=== PATIENT | male | born 1980 ===

== ENCOUNTER 2024-09-23 13:45 | Outpatient (AMB) | payer MEDICAID, SELFPAY ==
--- NOTE | 2024-09-23 13:41 | A.OFFVIS_ITS ---
Intake Visit Reasons: hydrocele Intake Note: New Patient presents for initial visit for hydrocele Urology Medications: none Blood Thinner: none Cigar Bander Hand Required: No Accompanied by: Unknown Allergies No Known Allergies Allergy (Verified 09/23/24 14:39) Medication List - Last Reconciled 09/23/24 by SARMAD Martinez atorvastatin 10 mg PO BEDTIME insulin glargine (Lantus Solostar U-100 Insulin) 40 units subcut BEDTIME lisinopril 10 mg PO DAILY metformin 1,000 mg PO BID trazodone 100 mg PO BEDTIME HPI Comments Details: Ken is a very pleasant 44-year-old Bahamian-speaking male patient of Dr. Plascencia was accompanied by his significant other at today's office visit. He has a past medical history of type 2 diabetes, hypertension, and hyperlipidemia. He presents to the office today as a new patient for hydrocele. In discussion with the patient today he reports increased swelling to the left testicle since October of last year. He discusses following up with his PCP at which time a scrotal ultrasound was ordered. These results reviewed with the patient today. 02/18 moderate left hydrocele, normal testicles with normal Doppler evaluation. Right epididymal head cysts. In assessment of the patient today moderate to large sided left hydrocele is noted otherwise no open areas, drainage, or lesions noted. He otherwise denies any bothersome urinary issues or concerns. He denies urinary urgency, urinary frequency, incontinence, nocturia, hematuria, dysuria, foul smelling urine, changes to urinary stream, flank pain, fever, and or chills. He is happy with his current voiding parameters. We discussed potential causes of hydrocele as well as further interventions and risks and benefits of these interventions. In office urinalysis results reviewed with the patient today. We discussed obtaining A1c for further assessment evaluation. He would like to undergo surgical intervention however will assess A1c prior. He discusses following up with [facility] wound care for his left foot wound. He otherwise offers no other issues or concerns at this time. Review of Systems Const All systems reviewed & are unremarkable except as noted in HPI and below Physical Exam Const General: cooperative, comfortable, no acute distress, well developed, alert and awake Nutritional Appearance: overweight Orientation/consciousness: patient oriented x3 Limitations: crutches HEENT Head: Yes normal to inspection, Yes normocephalic and Yes atraumatic Ears: hearing grossly normal bilaterally Eyes General: appearance normal, both eyes and all related structures Neck Neck: Yes normal visual inspection and Yes trachea midline Chest Chest palpation & inspection: normal inspection of the chest Resp Effort & Inspection: normal respiratory effort and able to speak in complete sentences Cardio Rate: regular rate GI Inspection: Yes normal to inspection General: Yes no CVA tenderness Back/Spine/Pelvis Back: no CVA tenderness Skin General skin exam: no rashes or lesions noted Neuro General: patient oriented x3 Extrem General: Yes normal to inspection Psych Appearance: grossly normal and well kempt Mental Status: mental status grossly normal Speech and movement: Normal speech and movement present and Clear speech present Affect: normal affect Attitude: cooperative Thought process: Normal thought process present Thought content: Normal thought content present Insight: Fair insight present (Psych) Judgement: Fair judgement present (Psych) Results AMB Urinalysis, Automated UA Leukoctes 0 Cornell/uL Last Edit by Drywave on 09/23/24 14:25 UA Nitrite Last Edit by Drywave on 09/23/24 14:25 UA Urobilinogen 0.2 mg/dL Last Edit by Drywave on 09/23/24 14:25 UA Protein 0 mg/dL Last Edit by Drywave on 09/23/24 14:25 UA pH 6.0 Last Edit by Drywave on 09/23/24 14:25 UA Blood 0 West/uL Last Edit by Drywave on 09/23/24 14:25 UA Specific [place] 1.015 Last Edit by Drywave on 09/23/24 14:25 UA Ketone Last Edit by Drywave on 09/23/24 14:25 UA Bilirubin 0 mg/dL Last Edit by Drywave on 09/23/24 14:25 UA Glucose 1000 mg/dL Last Edit by Drywave on 09/23/24 14:25 Results Reviewed Results Reviewed: Laboratory Last Values Urine pH (Auto) 6.0 09/23/24 14:22 Specific [place] (Auto) 1.015 09/23/24 14:22 Urine Protein (Auto) 0 mg/dL 09/23/24 14:22 Glucose (UA)(Auto) 1000 mg/dL 09/23/24 14:22 Urine Blood (Auto) 0 West/uL 09/23/24 14:22 Urine Bilirubin (Auto) 0 mg/dL 09/23/24 14:22 Urine Urobilinogen (Auto) 0.2 mg/dL 09/23/24 14:22 Leukocyte Esterase (Auto) 0 Cornell/uL 09/23/24 14:22 Assessment & Plan Assessment & Plan (1) Hydrocele: Code(s): N43.3 - Hydrocele, unspecified Category: Medical Plan In office urinalysis results reviewed with the patient today; as noted above. Most recent scrotal ultrasound results reviewed with the patient today; as noted above. We discussed further intervention of hydrocele; as well as risks and benefits of these interventions. All questions were answered. Will obtain hemoglobin A1c for further assessment evaluation. He denies any bothersome urinary issues. He reports be happy with current voiding parameters. Follow-up in 1-3 months with A1c to be completed prior; or sooner with any issues, concerns, and or questions. Orders: Orders AMB Urinalysis Automated Today Z13.9 - Encounter for screening, unspecified Hemoglobin A1c Today E11.9 - Type 2 diabetes mellitus without complications Patient Instructions: The patient had an opportunity to ask questions regarding the treatment plan. All questions were answered. Physical exam, labs, and imaging were discussed and reviewed in detail. As well as risks, benefits, and discussion of treatment choices. No major barriers to understanding were identified. The patient expressed understanding and agreement with the above treatment plan. The patient was made aware they should contact our office by phone for worsening of their current condition, the appearance of new symptoms, or with any questions or concerns. Compliance is encouraged with any medications and follow up testing that is ordered. It is a privilege to be allowed the opportunity to participate in? your urological care.? Again, if you have any questions or c oncerns If you have any questions or concerns please do not hesitate to contact me. The office is [phone]. This note is constructed using voice recognition software. While every effort has been made to ensure accuracy plug shaper hand errors may have been included. Yours sincerely, CECILIA Martinez-DIANA Coding Level of Care Code New Pt Level 3 (75413) Diagnoses Hydrocele N43.3
--- OUTSIDE RECORDS SUMMARY | 2024-09-23 18:26 | XMS_ITS | Encounter Summary ---
Author Organization [facility] Address [address] [place] [address] Care Team Providers Care City Sanitarian Name Role Phone Gui Plascencia Primary Care Provider [phone] Encounter Details Date Type Department Care Team (Latest Contact Info) Description 09/02/2024 Travel Social History Tobacco Use Types Packs/Day Years Used Date Smoking Tobacco: Never Smokeless Tobacco: Never Alcohol Use Standard Drinks/Week Comments No 0 (1 standard drink = 0.6 oz pur e alcohol) Social Connections Answer Date Recorded Connectedness 1 01/29/2024 Financial Resource Strain Answer Date R ecorded Financial Resource Strain 1 2023 Stress Answer Date Recorded Stress 1 01/29/2024 Physical Activity Answer Date Recorded Physical Activity 0 04/21/2019 Food Insecurity Answer Date Recorded Food 1 01/29/2024 Transportation Needs Answer Date Record ed Transportation 1 01/29/2024 Housing Stability Answer Date Recorded Housing 1 01/29/2024 Safety and Environment Answer Date Sai rded Safety 1 01/29/2024 Utilities Answer Date Recorded Utilities 1 01/29/2024 Employment Answer Date Recorded Employment 0 04/21/2019 Sex and Gender Information Value Date Recorded Sex Assigned at Male 05/26/2017 1:26 PM PDT Legal Sex Male 11:58 AM PDT Gender Identity Male 05/26/2017 1:26 PM PDT Sexual Orientation Straight 05/26/2017 1: 26 PM PDT COVID-19 Exposure Response Date Recorded In the last 10 days, have yo u been in contact with someone who was confirmed or suspected to have Coronavirus/COVID-19? No / Unsure 09/02/2024 4:36 PM EST documented as of this encounter Plan of Treatment Not on file documented as of this encounter Goals Goal Patient Goal Type Associated Problems Recent Progress Patient-Stated? Author Blood Pressure < 130/80 Blood Pressure Essential hypertension 158/93(2024 4:42 PM EST) No Fahad Page, PharmD HEMOGLOBIN A1C < 7.0 Result Component Diabetes mellitus ([facility]) 13.8(01/29/20 12:08 PM EDT) No Fahad Page, Timothy documented as of this encounter Visit Diagnoses Not on filedocumented in this encounter Additional Health Concerns Assessment Noted Time PHQ-9 Depression Total Score: 3 01/29/20 24 11:34 AM PDT documented as of this encounter Care Teams City Sanitarian Relationship Specialty Start Date End Date Gui Plascencia PA [address] [place] [address] PCP - General Internal Medicine 03/30/18 documented as of this encounter
--- OUTSIDE RECORDS SUMMARY | 2024-09-23 18:26 | XMS_ITS | Clinical Summary ---
Author Organization [address] [facility] Address [address] [place] [address] Phone Care Team Providers Care Gym Instructor Name Role Phone Physician, Pcp Unknown Primary Care Provider Dulce vailable Medications Medication Sig Dispensed Refills Start Date End Date Status ammonium lactate (LAC-HYDRIN) 12 % lotion Apply to soles of feet daily. At night wear socks to bed Active Social History Tobacco Use Types Packs/Day Years Used Date Smoking Tobacco: Never Assessed Sex and Gender Information Value Date Recorded Sex Assigned at Not on file Gender Identity Not on file Sexual Orientation Not on file Job Start Date Occupation Industry Not on file Not on file Not on file Last Filed Vital Signs Vital Sign Reading Time Taken Comments Blood Pressure - - Pulse - - Temperature - - Respiratory Rate - - Oxygen Saturation - - Inhaled Oxygen Concentration - - Weight 129 kg (285 lb) 05/08/2024 10:24 AM EDT Height 177.8 cm (5' 10 ) 05/08/2024 10:24 AM EDT Body Mass Index 40.89 05/08/2024 10:24 AM EDT Plan of Treatment Upcoming Encounters Date Type Department Care Team (Late st Contact Info) Description 10/30/2024 1:45 PM EST Office Visit Orthopedic Surgery - [place] [id number] [phone] Ángel Maynard DPM [address] [address] Health Maintenance Due Date Last Done Comments DTaP,Tdap,and Td Vaccines (1 - Tdap) 1999 Hepatitis B Vaccines (2 of 3 - 19+ 3-dose series) 05/10/2018 04/12/2018 Pneumococcal Vaccine: Pediat rics (0 to 5 Years) and At-Risk Patients (6 to 64 Years) (2 of 2 - PCV) 04/12/2019 04/12/2018 Depression Screening 07/26/2022 HIV Screening 07/26/2022 Social Influencers of Health Screening 07/26/2022 COVID-19 Vaccine (1 - 2023-2 5 season) 2024 Influenza Vaccine (#1) 2024 05/26/2017 Cholesterol Screening (Lipid Panel) 01/28/2029 01/29/2024 Hepatitis C Screening Completed 02/10/2024 HIB Vaccines Aged Out No longer eligi ble based on patient's age to complete this topic HPV Vaccines Aged Out No longer eligi ble based on patient's age to complete this topic Hepatitis A Vaccines Aged Out No long er eligible based on patient's age to complete this topic IPV Vaccines Aged Out No longer eligi ble based on patient's age to complete this topic MMR Vaccines Aged Out No longer eligi ble based on patient's age to complete this topic Meningococcal ACWY Vaccine Aged Out N o longer eligible based on patient's age to complete this topic RSV Immunization Patients Un stephen 20 months Aged Out No longer eligible b ased on patient's age to complete this topic Varicella Vaccines Aged Out No longer eligible based on patient's age to complete this topic Procedures Procedure Name Priority Date/Time Associated Diagnosis Comments HEPATITIS C SCREENING Routine 02/10/2024 LIPID PANEL Routine 01/29/2024 from Last 3 Months or Most Recently Relevant to Health Maintenance Results * Hepatitis C Screening (02/10/2024) Pathologist [facility] Hepatitis C Screening Abstracted Historical Provider MD RANDALL FORD E * Lipid panel (01/29/2024) LDL/HDL Ratio 0 Comment:No Interpretation Triglycerides 0 mg/dL Comment:No Interpretation Cholesterol 0 mg/dL Comment:No Interpretation HDL 0 mg/dL Comment:No Interpretation LDL Cholesterol 0 mg/dL Comment:No Interpretation Blood Venous blood specimen / Unknown Historical Provider LAB BLOOD ORDERAB LES from Last 3 Months or Most Recently Relevant to Health Maintenance Care Teams Gym Instructor Relationship Specialty Start Date End Date Physician, Pcp Unknown PCP - General 07/18/24
--- OUTSIDE RECORDS SUMMARY | 2024-09-23 18:26 | XMS_ITS | Continuity of Care Document ---
Author Organization [facility] Address [address] [place] [address] Phone Care Team Providers Care Conveyor Belt Installer Name Role Phone Allen Fox Unavailable Unavailable Allergies, Adverse Reactions, Alerts Substance Reaction Status Criticality No Known Allergies Active No Inform ation Medications Medication Instructions Dosage Effective Dates (start - stop) Status Comments METFORMIN HCL (unknown strength) Not Available - Active Procedures Procedure Date Office/Outpt E&M Established 15 Mins Apr Duplex Scan-extrem Veins; Comp Duplex Scan-extrem Veins; Uni/ 21 Endovenous Rf, 1st Vein Office/Outpt E&M Established 10 Mins Mar Office/Oupt E&M New Pt 45 Mins Duplex Scan-extrem Veins; Comp Advance Directives Directive Yes / No Effective Date File Name No Information Encounters Encounter Description Practice Location Reason(s) For Visit Diagnoses Date Provider Providers Copied on Encounter Office/Outpt E&M Established 15 Mins [facility], [address], [place], [place], [id number], [place] tel:[phone] [facility] Body mass index (BMI) 40.0-44.9, adultVaricose veins of bi low extrem w oth complicationsVenou s insufficiency (chronic) (peripheral) Sep-2 1 Ruddy Villa. [address], [address], [place], [address], [place]. tel: [phone] Referring Provider: Allen Dillard, [address], [place], [address]. tel:[phone] [facility] [place], [address], [place], [place], [id number], [place] tel:[phone] [place] [facility] [place] Chronic venous htn w oth comp of bilateral low extrm Sep-2 1 Ruddy Villa. [address] [place] [address], [address], [place], [address], [place]. tel: [phone] Referring Provider: Allen Dillard, [address] [place] [address] [address], [place], [place], [facility]. tel:[phone] [facility], [address] [place] [address], [place], [place], [id number], [place] tel:[phone] [place] [facility] [place] Encntr for f/u exam aft trtmt for cond oth than malig neoplmVaricose veins of left lower extremities with pain 1 Ruddy Villa. [address] [place] [address], [address], [place], [address], [place]. tel: [phone] Referring Provider: Allen Dillard, [address] [place] [address] [address], [place], [address]. 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 [address] [place] [address], [address], [place], [address], [place]. tel: [phone] Referring Provider: Allen Dillard, [address] [place] [address] [address], [place], [address]. tel: Office/Outpt E&M Established 10 Mins [facility], [address] [place] [address], [id number], tel:[phone] [facility] [place] Body mass index (BMI) 40.0-44.9, adultVenous insufficiency (chronic) (peripheral) 1 Ruddy Villa. [address] [place] [address], [address], [place], [place], [facility], [place]. tel: [phone] Referring Provider: Allen Dillard, [address] [place] [address] [address], [place], [place], [facility]. tel: Office/Oupt E&M New Pt 45 Mins [facility], [address] [place] [address], [id number], tel:[phone] [facility] Body mass index (BMI) 40.0-44.9, adultVenous insufficiency (chronic) (peripheral)Varico se veins of left lower extremities with pain 1 Ruddy Villa. [address] [place] [address], [address], [place], [place], [facility], [place]. tel: [phone] Referring Provider: Allen Dillard, [address] [place] [address] [address], [place], [place], [facility]. tel: [facility], [address] [place] [address], [id number], tel:[phone] [facility] Chronic venous htn w inflammation of bilateral low extrmVaricose veins of bilateral lower extremities with pain 1 Ruddy Villa. [address] [place] [address], [address], [place], [address], [place]. tel: [phone] Referring Provider: Allen Dillard, [address] [place] [address] [address], [place], [place], [facility]. tel:[phone] Family History Family Member Type Diagnosis Age At Onset No Information Payers Payer name Insurance type Covered democrat ID [id number] [facility] [facility] [id number] Social History Type Description Quantity Date Captured Comments Alcohol Use Details No Caffeine Use Details Unknown Tobacco Use Status Never smoked tobacco 2020 Smoking Status Never smoker Non-Smoking Tobacco Use Details : No Details Available : No Details Available Sex Male Vital Signs Date / Time: Height Weight BMI Pulse Rate Blood Pressure Temperature Respiratory Rate Body Surface Area Head Circumference Head Circ. Percentile Wt./Ramesh. Percentile BMI percentile Pulse Ox Inhaled Ox 1:33 PM 70.00 in 128.367 kg (283.00 lbs) 40.6 0 kg/m eter (2) 98 /min 138/88 mm[Hg] Chief Complaint And Reason For Visit No Information Reason For Referral Reason For Referral No Information Plan Of Treatment Date Type Action Status Goal Diet education completed Goal Diet education completed Goal Diet education completed Referral Ordered: Duplex Scan-extrem Veins; Comp Bilateral leg ordered History Of Present Illness Encounter Date Complaint History Of Prese nt Illness No Information Functional Status Date Functional Assessmen t No Information Instructions Date Instruction Additional Infor lázaro Patient education booklet given Related to V V w/Othr Complictns (Agle-Ewzip-Nkgmiznw); BILAT Giving Encouragement to Exercise Related to Body mass index [BMI]40.0-44.9, adult Diet education Related to Body mass index [BMI]40.0-44.9, adult Pre and post instruc tions reviewed and provided Related to Venous Insufficiency (Chronic / Peripheral) Continue compression stocking us e Related to Venous Insufficiency (Chronic / Peripheral) Giving Encouragement to Exercise Related to Body mass index [BMI]40.0-44.9, adult Diet education Related to Body mass index [BMI]40.0-44.9, adult Giving Encouragement to Exercise Related to Body mass index [BMI]40.0-44.9, adult Diet education Related to Body mass index [BMI]40.0-44.9, adult Patient education booklet given Related to Venous Insufficiency (Chronic / Peripheral) Pre and post instruc tions reviewed and provided Related to Venous Insufficiency (Chronic / Peripheral) Assessments Type Assessment Date assessment Body mass index [BMI]40.0-44.9, adult assessment Varicose veins of bi low extrem w oth complications assessment Venous insufficiency (chronic) ( peripheral) Patient Care Teams Name Effective Dates (start - stop) Status Members No Information
--- OUTSIDE RECORDS SUMMARY | 2024-09-23 18:27 | XMS_ITS | Encounter Summary ---
Author Organization [facility] Address [address] [place] [address] Care Team Providers Care Electronics Tech Name Role Phone Gui Plascencia Primary Care Provider [phone] Reason for Referral * Care Coordination (Urgent) - Pending Review Specialty Diagnoses / Procedures Referred By Francois allen Referred To Contact Diagnoses Blister of left foot, initial encounter Gui Plascencia PA [address] [place] [address] Phone: tel: fax: [facility] [address] [place], [place] Phone: tel: fax: Referral ID Status Reason Start Date Expiration Date Visits Requested Visits Authorized [id number] Pending Review Continuity of Care 09/02/2024 09/02/2025 1 1 Comments Large fluid filled blister left foot Reason for Visit * Reason Comments Same Day Appointment Encounter Details Date Type Department Care Team (Late st Contact Info) Description 09/02/2024 4:40 PM EST Office Visit [address] [phone] Gui Plascencia PA [address] [place] [address] Blister of left foot, initial encounter (Primary Dx); Primary insomnia Social History Tobacco Use Types Packs/Day Years Used Date Smoking Tobacco: Never Smokeless Tobacco: Never Tobacco Cessation:Counseling Given: Not Answered Alcohol Use Standard Drinks/Week Comments No 0 [...] PM EST documented as of this encounter Last Filed Vital Signs Vital Sign Reading Time Taken Comments Blood Pressure 158/93 09/02/2024 4:42 PM EST Pulse 104 09/02/2024 4:42 PM EST Temperature 36.8 ??C (98.2 ??F) 09/02/2024 4:42 PM ES T Respiratory Rate 20 09/02/2024 4:42 PM EST Oxygen Saturation 95% 09/02/2024 4:42 PM EST Inhaled Oxygen Concentration - - Weight 121.1 kg (266 lb 14.4 oz) 09/02/2024 4:42 PM EST Height - - Body Mass Index 38.3 02/10/2024 10:18 AM EDT documented in this encounter Progress Notes * Genny Mcadams - 09/02/2024 4:58 PM EST .HPI Arnoldozeb Pace is a 44 year old, male, here today as Walk-in. Pt presents with a CC of pain and difficulty walking due to a large fluid filled blister at the bottom of his left foot. Patientfeel asleep with his heated foot massager on. Reports pain and tenderness. Denies numbness or tingling decreased range of motion or reduced sensation. ROS Constitutional :Pt denies any fever, chills, HEENT: headache, dizziness,vision changes : Denies nausea, vomiting, no changes in urinary or bowel habits. CARDIO: denies chest pain, sob, cough, Abdominal: denies abdx pain, Skin: No Rash Extremities: left foot pain , no edema or joint pains, PE Vitals reviewed BP (!) 158/93 Pulse (!) 104 Temp 98.2 ??F (36.8 ??C) Resp 20 Wt 266 lb 14.4 oz (121.1 kg) SpO2 95% BMI 38.30 kg/m?? Smoking Status Never BSA 2.45 m?? General: NAD HEENT: PERRL, EOMI CV: RRR, S1S2+ Lungs: CTA b/l. Abd: Soft, NT, ND, BS+ Ext: Left foot, bottom of foot blister, extending entire forefoot, 3 cm thick, blister intact, clear fluid, A&P S90.822A Blister of left foot, initial encounter (primary encounter diagnosis) Plan : REFERRAL TO WOUND THERAPY F51.01 Primary insomnia Plan : TRAZODONE 100 MG TABLET - Take 1 Tablet by mouth nightly at bedtime - wound dressed, wrapped. - advised leaving blister intact and waiting for wound therapy intervention. If any new or worsening symptoms/ If current symptoms does not improve as expected, he may return here or go to ER as needed. RTC: PRN and/ as scheduled with PCP. documented in this encounter Miscellaneous Notes * Patient Instructions - Genny Mcadams - 09/02/2024 5:12 PM EST If you are not able to keep your appointment please call 24-48 hours before your appointment to cancel or reschedule. documented in this encounter Plan of Treatment Scheduled Referrals Name Type Priority Associated Diagnoses Orde r Schedule REFERRAL TO WOUND THERAPY Referral Urgent Blister of left foot, initial encounter Ordered: 09/02/2024 documented as of this encounter Goals Goal Patient Goal Type Associated Problems Recent Progress Patient-Stated? Author Blood Pressure < 130/80 Blood Pressure Essential hypertension 158/93(2024 4:42 PM EST) No Fahad Page, PharmD HEMOGLOBIN A1C < 7.0 Result Component Diabetes mellitus ([facility]) 13.8(01/29/20 12:08 PM EDT) No Fahad Page, PharmD documented as of this encounter Visit Diagnoses Diagnosis Blister of left foot, initial encounter- Primary Primary insomnia Persistent disorder of initiating or maintaining sleep documented in this encounter Additional Health Concerns Assessment Noted Time PHQ-9 Depression Total Score: 3 01/29/20 24 11:34 AM PDT documented as of this encounter Care Teams Electronics Tech Relationship Specialty Start Date End Date Gui Plascencia PA [address] [place] [address] PCP - General Internal Medicine 03/30/18 documented as of this encounter
--- OUTSIDE RECORDS SUMMARY | 2024-09-23 18:27 | XMS_ITS | Clinical Summary ---
Author Organization [facility] Address [address] [place] [address] Care Team Providers Care Mohs Surgeon/General Dermatologist Name Role Phone Gui Plascencia Primary Care Provider [phone] Source Comments PLEASE NOTE, if this patient is a minor, it may be UNLAWFUL to discuss sensitive information that is contained in these records (such as FAMILY PLANNING, MENTAL HEALTH or SUBSTANCE ABUSE) with the minor patient's parent or other person without the patient's specific authorization.[facility] Allergies No known active allergies Medications flash glucose scanning reader (FREESTYLE SRAVAN 2 READER) miscIndications:Ty pe 2 diabetes mellitus with hyperosmolarity without coma, without long-term current use of insulin ([facility]) Use daily as needed to check glucose levels 1 Each 08/25/20 22 Active flash glucose sensor (FREESTYLE SRAVAN 2 SENSOR) kitIndications:Typ e 2 diabetes mellitus with hyperosmolarity without coma, without long-term current use of insulin ([facility]) Apply to skin on back of arm every 14 days 6 Kit 3 08/25/20 22 Active insulin glargine (LANTUS SOLOSTAR U-100 INSULIN) 100 unit/mL (3 mL) penIndications:Typ e 2 diabetes mellitus with hyperglycemia, with long-term current use of insulin ([facility]) Inject 40 Units into the skin nightly at bedtime 15 mL 3 01/29/20 24 Active pen needle, diabetic (COMFORT EZ PEN NEEDLES) 32 gauge x 5/32 ndleIndications:Ty pe 2 diabetes mellitus with hyperglycemia, with long-term current use of insulin ([facility]) Use 1 needle with each injection of insulin 100 Each 01/29/20 24 Active blood-glucose meter monitoring kitIndications:Typ e 2 diabetes mellitus with hyperglycemia, with long-term current use of insulin ([facility]) Use to test blood glucose three times daily. (Freestyle Lite) 1 Each 01/29/20 24 Active blood sugar diagnostic stripsIndications: Type 2 diabetes mellitus with hyperglycemia, with long-term current use of insulin ([facility]) Use to test blood glucose three times daily. (Freestyle Lite) 100 Each 01/29/20 24 Active lancets (FREESTYLE LANCETS) 28 gaugeIndications:T ype 2 diabetes mellitus with hyperglycemia, with long-term current use of insulin ([facility]) Use to test blood glucose three times daily. (Freestyle lancets) 100 Each 01/29/20 24 Active alcohol swabsIndications:T ype 2 diabetes mellitus with hyperglycemia, with long-term current use of insulin ([facility]) Use to test blood glucose three times daily. 100 Each 01/29/20 24 Active lisinopriL 10 mg tabletIndications: Essential hypertension TOME 1 TABLETA POR VIA ORAL TODOS [place] HE IS CALLING WITH NEW INS 90 Tablet 3 04/25/20 24 Active ibuprofen 400 mg tabletIndications: Testicular swelling, left TAKE 1 TABLET BY MOUTH 4 TIMES DAILY NEEDED FOR PAIN. 90 Tablet 1 06/07/20 24 Active metFORMIN (GLUCOPHAGE) 1,000 mg tabletIndications: Type 2 diabetes mellitus with hyperglycemia, with long-term current use of insulin ([facility]) TOME 1 TABLETA POR VIA ORAL DOS VECES AL JARETH WITH A MEAL PATIENT IS CALLING BACK WITH INS INFO 180 Tablet 08/29/19 25 Active atorvastatin (LIPITOR) 10 mg tabletIndications: Hyperlipidemia associated with type 2 diabetes mellitus ([facility]) TOME 1 TABLETA POR VIA ORAL TODOS [place] AL ACOSTARSE 90 Tablet 08/29/19 25 Active traZODone (DESYREL) 100 mg tabletIndications: Primary insomnia Take 1 Tablet by mouth nightly at bedtime 30 Tablet 09/02/19 25 Active metFORMIN (GLUCOPHAGE) 1,000 mg tabletIndications: Type 2 diabetes mellitus with hyperglycemia, with long-term current use of insulin ([facility]) TOME 1 TABLETA POR VIA ORAL DOS VECES AL JARETH WITH A MEAL PATIENT IS CALLING BACK WITH INS INFO 180 Tablet 04/25/20 24 2024 Discontinued atorvastatin (LIPITOR) 10 mg tabletIndications: Hyperlipidemia associated with type 2 diabetes mellitus ([facility]) TOME 1 TABLETA POR VIA ORAL TODOS [place] AL ACOSTARSE 90 Tablet 04/30/20 24 2024 Discontinued Active Problems Problem Noted Date Diagnosed Date Epigastric pain 10/04/2021 Heartburn 10/04/2021 Gastroesophageal reflux disease 10/04/2021 Essential hypertension 08/17/2018 Atypical chest pain 09/18/2016 Overview (09/18/2016): 05/05/16- seen at [facility] cardiology- will repeat stress test. Only return is stress test is abnormal. Renal calculus 06/02/2016 Overview (06/02/2016): [place] [address] A Member of the [facility] Patient: LUZ MARIA GOTTLIEB : 1980 -04:00 Age: 36 Gender: M Account: [id number] Report: CT Abdomen & Pelvis WO Cont Ordered By: AV JACKSON Date: 05/26/2016 12:55:29 PM -04:00 Status: F History: Back pain. Abdominal pain. Technique: Helical volumetric imaging of the abdomen and pelvis was performed without intravenous or oral contrast (stone ramirez protocol) per the request of the referring PA. DLP: 1102.89 mGy/cm [employer] VCT Iterative reconstruction technique Findings: The kidneys are normal in position and size. A 6 mm nonobstructing calculus is present in the interpolar aspect of the left kidney. No right renal calculi are seen. There is no ureteral calculus. No hydronephrosis is identified. A 2.3 cm circumscribed homogeneously hypoattenuating mass arises from the posterior lower pole of the left kidney, with CT numbers in the water attenuation range, compatible with a cyst. The perinephric fat is preserved. The urinary bladder is unremarkable. The liver is normal in size and configuration. No masses or biliary ductal dilatation are seen. The gallbladder is physiologically distended. The spleen, pancreas and adrenal glands are unremarkable. No ascites is seen. The prostate and seminal vesicles are unremarkable for age. No evidence of bowel obstruction is seen. The appendix is normal in appearance in the right lower quadrant. No abnormal perienteric or pericolonic fat stranding is identified. Minor anterior wedging of a lower thoracic vertebral body is seen, appearing chronic. There are disc degenerative changes at the lumbosacral junction. Impression: 1. No evidence of ureteral calculus or obstruction. 2. 6 mm nonobstructing left renal calculus. 3. Left renal cyst. [id number] Dictated By: TERE DUNCAN Date Dictated: 05/26/2016 12:55:29 PM -04:00 Signed By: TERE DUNCAN Date Signed: 05/26/2016 1:01:36 PM -04:00 Anemia 06/30/2014 Abnormal liver enzymes 06/30/2014 Diabetes mellitus ([facility]) 06/16/2014 Microcytosis 06/16/2014 Morbid obesity ([facility]) 05/16/2014 Encounters Date Type Department Care Team Description 09/02/2024 4:40 PM EST Office Visit [address] [phone] Gui Plascencia PA Blister of left foot, initial encounter (Primary Dx); Primary insomnia 09/02/2024 Travel 09/02/2024 Telemedicine Visit [address] [phone] Gui Plascencia PA Partial thickness burn of foot, unspecified laterality, initial encounter (Primary Dx) 06/27/2024 Interim Notes [address] [phone] Gui Plascencia PA Hydrocele, unspecified hydrocele type (Primary Dx) from Last 3 Months Immunizations Name Administration Dates Next Due Flu, Preservative Free 05/26/2017 Hep B, Adult/Adol (ENERGIX/RECOMBIVAX) 8,02/23/2017,09/07/2016 INFLUENZA, SEASONAL, INJECTABLE 09/07/2016 PNEUMOCOCCAL POLYSACCHARIDE PPV23 04/12/2018 TDAP 02/23/2017 Family History Medical History Relation Name Comments Diabetes Father Diabetes Mother Heart Problems Mother age 65 A lzheimer Relation Name Status Comments Father Mother Social History Tobacco Use Types Packs/Day Years [...] No / Unsure 09/02/2024 4:36 PM EST Last Filed Vital Signs Vital Sign Reading [...] 14.4 oz) 09/02/2024 4:42 PM EST Height 177.8 cm (5' 10 ) 02/10/2024 10: 18 AM EDT Body Mass Index 38.3 02/10/2024 10:18 AM EDT Plan of Treatment Health Maintenance Due Date Last Done Comments Dental Examination 1980 Retinopathy Screening 02/11/2017 02/12/2016 Imm-Pneumococcal (2 of 2 - PCV) 04/12/2019 8 [id number] (1 - season) 2024 Imm-Influenza (#1) 2024 05/26/2017, 09/07/2016 Diabetes HbA1c 04/30/2024 01/29/2024, 06/0 10/2023, 12/08/2022, Additional history exists Alcohol and Drug Screen 08/28/2024 01/29/20 24, 01/29/2024, 08/25/2022, Additional history exists Depression Annual Screen 08/28/2024 024, 04/12/2018, 02/12/2016 Annual Preventive Care Visit 01/28/202510/2023, 12/21/2020, 04/12/2018, Additional history exists Diabetes Foot Exam 01/28/2025 01/29/2024, 1 09/28/2020, 05/26/2017, Additional history exists Diabetes Microalbumin (w/Creatinine) 01/28/2025 01/29/2024, 06/10/2021, 02/23/2017, Additional history exists Lipid Screening 01/28/2025 01/29/2024, 060 10/2023, 12/08/2022, Additional history exists Serum Creatinine 01/28/2025 01/29/2024, , 06/10/2021, Additional history exists Tobacco Screening 09/02/2025 09/02/2024 Imm-DTaP/Tdap/Td (2 - Td or Tdap) 02/23/2027 017 HIV Screening Completed 05/26/2017 Imm-Hepatitis B Completed 04/12/2018, 03/28, 02/23/2017, Additional history exists Hepatitis C Screening Completed 02/10/2024, 014 Goals Goal Patient Goal Type Associated Problems Recent Progress Patient-Stated? Author Blood Pressure < 130/80 Blood Pressure Essential hypertension 158/93(2024 4:42 PM EST) No Fahad Page, PharmD HEMOGLOBIN A1C < 7.0 Result Component Diabetes mellitus ([facility]) 13.8(01/29/20 12:08 PM EDT) No Fahad Page, Timothy Procedures Procedure Name Priority Date/Time Associated Diagnosis Comments HEPATITIS C AB W/RFLX HCV RNA, QT, RT PCR Routine 02/10/2024 11:23 AM EDT Screening examination for STD (sexually transmitted disease) Testicular swelling, left COMPREHENSIVE METABOLIC PANEL Routine 01/29/2024 12:08 PM EDT Type 2 diabetes mellitus with hyperglycemia, with long-term current use of insulin ([facility]) Essential hypertension Physical exam Screening due LIPID PANEL Routine 01/29/2024 12:08 PM EDT Type 2 diabetes mellitus with hyperglycemia, with long-term current use of insulin ([facility]) Essential hypertension Physical exam Screening due MICROALBUMIN/CREATININ E RATIO, URINE, RANDOM Routine 01/29/2024 12:08 PM EDT Type 2 diabetes mellitus with hyperglycemia, with long-term current use of insulin ([facility]) Physical exam Screening due HGBA1C W/MPG Routine 01/29/2024 12:08 PM EDT Type 2 diabetes mellitus with hyperglycemia, with long-term current use of insulin ([facility]) Physical exam Screening due REFERRAL TO PODIATRY Urgent 07/28/2021 3:00 AM EST Plantar fasciitis, bilateral from Last 3 Months or Most Recently Relevant to Health Maintenance Results * HEPATITIS C AB W/RFLX HCV RNA, QT, RT PCR (02/10/2024 11:23 AM EDT) HEPATITIS C ANTIBODY NON-REACT JAYSHREE NON-REACT JAYSHREE [place] [facility] Comment: HCV antibody was non-reactive. There is no laboratory evidence of HCV infection. In most cases, no further action is required. However, if recent HCV exposure is suspected, a test for HCV RNA (test code 31363) is suggested. For additional information please refer to http://education.[employer]/faq/FIX55r4 (This link is being provided for informational/ educational purposes only.) Blood Blood / Unknown 02/10/2024 1 1:23 AM EDT 02/10/2024 11:23 AM EDT Narrative [facility] - 02/13/2024 5:11 PM EDT FASTING:NO Genevieve JACKSON LAB - BLOOD DRAW Edited Result - Final Performing Organization Address [facility]/ZIP Co de Phone Number [facility] [address] [address], [email or web address] [address] [address] * (ABNORMAL) HGBA1C W/MPG (01/29/2024 12:08 PM EDT) HEMOGLOBIN A1C 13.8(H) <5.7 % of total Hgb [facility] Comment: For someone without known diabetes, a hemoglobin A1c value of 6.5% or greater indicates that they may have diabetes and this should be confirmed with a follow-up test. For someone with known diabetes, a value <7% indicates that their diabetes is well controlled and a value greater than or equal to 7% indicates suboptimal control. A1c targets should be individualized based on duration of diabetes, age, comorbid conditions, and other considerations. Currently, no consensus exists regarding use of hemoglobin A1c for diagnosis of diabetes for children. ?? MEAN PLASMA GLUCOSE 414 mg/dL (calc) [facility] Blood Blood / Unknown 01/29/2024 1 2:08 PM EDT 01/29/2024 12:08 PM EDT Dipti Velazquez PA-C LAB - BLOOD DRAW Edited Res ult - Final Performing Organization Address [facility]/ZIP Co de Phone Number [facility] [address] [address], [facility] [address] [address] * MICROALBUMIN/CREATININE RATIO, URINE, RANDOM (01/29/2024 12:08 PM EDT) CREATININE, RANDOM URINE 60 20 - 320 mg/dL [facility] MICROALBUMIN 0.5 mg/dL [facility] Comment: Reference Range Not established MICROALBUMIN/CREA TININE RATIO, RANDOM URINE 8 <30 mg/g creat [facility] Comment: The ADA defines abnormalities in albumin excretion as follows: Albuminuria Category ?Result (mg/g creatinine) Normal to Mildly increased ?? <30 Moderately increased ? 30-299 Severely increased ? > OR = 300 The ADA recommends that at least two of three specimens collected within a 3-6 month period be abnormal before considering a patient to be within a diagnostic category. Urine Urine specimen / Unknown 01/29/2024 12:08 PM EDT 01/29/2024 12:08 PM EDT Dipti Velazquez PA-C LAB - NO BLOOD DRAW Final [facility] [address] [place] [id number], [facility] [address] [place] [phone] * (ABNORMAL) LIPID PANEL (01/29/2024 12:08 PM EDT) CHOLESTEROL, TOTAL 184 <200 mg/dL [facility] HDL CHOLESTEROL 33(L) > OR = 40 mg/dL [facility] TRIGLYCERIDES 673(H) <150 mg/dL [facility] Comment: If a non-fasting specimen was collected, consider repeat triglyceride testing on a fasting specimen if clinically indicated. Peres et al. J. of Clin. Lipidol. 2015;9:129-169. There is increased risk of pancreatitis when the triglyceride concentration is very high (> or = 500 mg/dL, especially if > or = 1000 mg/dL). Peres et al. J. of Clin. Lipidol. 2015;9:129-169. LDL-CHOLESTEROL See Note QUES [facility] Comment: LDL cholesterol not calculated. Triglyceride levels greater than 400 mg/dL invalidate calculated LDL results. Reference range: <100 Desirable range <100 mg/dL for primary prevention; ?? <70 mg/dL for patients with CHD or diabetic patients with > or = 2 CHD risk factors. LDL-C is now calculated using the Yannick-Quezada calculation, which is a validated novel method providing better accuracy than the Friedewald equation in the estimation of LDL-C. Yannick LEZAMA et al. CANDELARIA. 2013;310(19): 6032-8367 (http://education.[employer]/faq/YBM244) CHOL/HDLC RATIO 5.6(H) <5.0 (calc) [facility] NON-HDL CHOLESTEROL 151(H) <130 mg/dL (calc) [facility] Comment: For patients with diabetes plus 1 major ASCVD risk factor, treating to a non-HDL-C goal of <100 mg/dL (LDL-C of <70 mg/dL) is considered a therapeutic option. Blood Blood / Unknown 01/29/2024 1 2:08 PM EDT 01/29/2024 12:08 PM EDT Dipti Velazquez PA-C LAB - BLOOD DRAW Final Resu [facility] [address] [place] [address], [facility] [address] [place] [phone] * (ABNORMAL) COMPREHENSIVE METABOLIC PANEL (01/29/2024 12:08 PM EDT) GLUCOSE 377(H) 65 - 99 mg/dL [facility] Comment: ?Fasting reference interval For someone without known diabetes, a glucose value >125 mg/dL indicates that they may have diabetes and this should be confirmed with a follow-up test. UREA NITROGEN (BUN) 12 7 - 25 mg/dL [facility] CREATININE (blood) 0.91 0.60 - 1.29 mg/dL [facility] EGFR 107 > OR = 60 mL/min/1. 73m2 [facility] BUN/CREATININE RATIO SEE NOTE: [facility] Comment: ?? Not Reported: BUN and Creatinine are within ?? reference range. ? SODIUM 130(L) 135 - 146 mmol/L [facility] POTASSIUM 4.4 3.5 - 5.3 mmol/L [facility] CHLORIDE 94(L) 98 - 110 mmol/L [place] [facility] CARBON DIOXIDE 26 20 - 32 mmol/L [place] [facility] CALCIUM 9.6 8.6 - 10.3 mg/dL [place] [facility] PROTEIN, TOTAL 6.9 6.1 - 8.1 g/dL [place] [facility] ALBUMIN 4.7 3.6 - 5.1 g/dL [place] [facility] GLOBULIN 2.2 1.9 - 3.7 g/dL (calc) [place] [facility] ALBUMIN/GLOBULI N RATIO 2.1 1.0 - 2.5 (calc) [place] [facility] BILIRUBIN, TOTAL 0.3 0.2 - 1.2 mg/dL [place] [facility] ALKALINE PHOSPHATASE 61 36 - 130 U/L [place] [facility] AST 19 10 - 40 U/L [place] [facility] ALT 23 9 - 46 U/L [place] [facility] Blood Blood / Unknown 01/29/2024 1 2:08 PM EDT 01/29/2024 12:08 PM EDT Dipti Velazquez PA-C LAB - BLOOD DRAW Edited Res ult - Final [place] [address] [address], [place] [address] [phone] * REFERRAL TO PODIATRY (07/28/2021 3:00 AM EST) 07/28/2021 3:00 AM EST Courtney SANTANAP REFERRAL Edited Result - Final from Last 3 Months or Most Recently Relevant to Health Maintenance Insurance [id number] Care Teams Mohs Surgeon/General Dermatologist Relationship Specialty Start Date End Date Gui Plascencia PA [address] [place] [address] PCP - General Internal Medicine 03/30/18
--- OUTSIDE RECORDS SUMMARY | 2024-09-23 18:27 | XMS_ITS | Encounter Summary ---
Author Organization [facility] Address [address] [place] [address] Care Team Providers Care Finance Manager Name Role Phone Gui Plascencia Primary Care Provider [phone] Encounter Details Date Type Department Care Team (Latest Contact Info) Description 09/02/2024 Telemedicine Visit [address] [id number] Gui Plascencia PA [address] [place], [place] [id number] Partial thickness burn of foot, unspecified laterality, initial encounter (Primary Dx) Social History Tobacco Use Types Packs/Day Years [...] Orientation Straight 05/26/2017 1: 26 PM PDT documented as of this encounter Progress Notes * RENETTA Lay - 09/02/2024 7:51 AM EST The following visit was conducted via Telephone. I educated the patient on the terms of telehealth and the patient verbally consented to this telemedicine visit. The patient was identified using their Name and I identified myself as RENETTA Lay from [facility]. It was conductedin a private space to protect HIPPA sensitive information. Precautions were taken to provide confidentiality and security and patient was made aware of privacy considerations. The patient was notified that the services were being provided from [place], [place] The patient was notified that they can see a clinician in- person in the event of an emergency or if otherwise needed. Visit START TIME 4:40Am EDT END TIME 4:52 Am EDT Interpreting services by Patient provides own core feeder family member for today's visit. were utilized during this visit. Interpreting service provided via telephone. HPI: Ken Pace is a 44 year old male who calls an call service to report blister on foot extending from big toe to third toe, he is diabetic and worried about this. He left a foot massager on too long during the night and woke up to this blister. Minimal pain. No signs of infection. Would like advice, Problem List: Patient Active Problem List Diagnosis Morbid obesity (HCC-CMS) Diabetes mellitus (HCC-CMS) Microcytosis Anemia Abnormal liver enzymes Renal calculus Atypical chest pain Essential hypertension Epigastric pain Heartburn Gastroesophageal reflux disease Medications: Current Outpatient Medications Medication Sig Dispense Refill atorvastatin (LIPITOR) 10 mg tablet TOME 1 TABLETA POR VIA ORAL TODOS [place] SHARPE AL ACOSTARSE 90 Tablet 0 metFORMIN (GLUCOPHAGE) 1,000 mg tablet TOME 1 TABLETA POR VIA ORAL DOS VECES AL JARETH WITH A MEAL PATIENT IS CALLING BACK WITH INS INFO 180 Tablet 0 ibuprofen 400 mg tablet TAKE 1 TABLET BY MOUTH 4 TIMES DAILY NEEDED FOR PAIN. 90 Tablet 1 lisinopriL 10 mg tablet TOME 1 TABLETA POR VIA ORAL TODOS [place]AR[place] HE IS CALLING WITH NEW INS 90 Tablet 3 alcohol swabs Use to test blood glucose three times daily. 100 Each 11 blood sugar diagnostic strips Use to test blood glucose three times daily. (Freestyle Lite) 100 Each 11 blood-glucose meter monitoring kit Use to test blood glucose three times daily. (Freestyle Lite) 1 Each 0 insulin glargine (LANTUS SOLOSTAR U-100 INSULIN) 100 unit/mL (3 mL) pen Inject 40 Units into the skin nightly at bedtime 15 mL 3 lancets (FREESTYLE LANCETS) 28 gauge Use to test blood glucose three times daily. (Freestyle lancets) 100 Each 11 pen needle, diabetic (COMFORT EZ PEN NEEDLES) 32 gauge x 5/32 ndle Use 1 needle with each injection of insulin 100 Each 11 flash glucose scanning reader (FREESTYLE SRAVAN 2 READER) [facility] Use daily as needed to check glucose levels 1 Each 0 flash glucose sensor (FREESTYLE SRAVAN 2 SENSOR) kit Apply to skin on back of arm every 14 days 6 Kit 3 No current facility-administered medications for this visit. Depression screenin01/29/2024 11:34 AM Little interest or pleasure in doing things Not at all Feeling down, depressed or hopeless [include irritable if under 18] Not at all Trouble falling or staying asleep, or sleeping too much Nearly every day Feeling tired or having little energy Not at all Poor appetite or overeating Not at all Feeling bad about yourself - or that you are a failure or have let yourself or your family down Notat all Trouble concentrating on things like school work, reading or watching TV? Not at all Moving or speaking so slowly that other people could have noticed? Or the opposite - being so fidgety or restless that you have been moving around a lot more than usual Not at all Thoughts you would be better off or of hurting yourself in some way Not at all If you checked off any problems, how difficult have these problems made it for you to do your work,take care of things at home, or get along with other people? Not difficult at all PHQ-9 Total Score (Auto Calculated) 3 Depression Severity: None-minimal ROS: he denies any fever, chills, Nausea, vomiting, headache, dizziness, chest pain, sob, cough, Abd pain, change in urinary or bowel habits. No Rash, Joint pains. PE: Physical exam not performed. A/P: T25.229A Partial thickness burn of foot, unspecified laterality, initial encounter (primary encounter diagnosis) - recommended keeping blister intact, applying cool cloth, keep foot elevated, Tylenol for pain. Advised reporting to ED if pain not manageable. - Pain manageable, will ask triage nurse to schedule patient for same day to evaluate. Return in about 1 day (around 09/03/2024). documented in this encounter Miscellaneous Notes * Patient Instructions - RENETTA Lay - 09/02/2024 7:55 AM EST If you are not able to keep your appointment please call 24-48 hours before your appointment to cancel or reschedule. documented in this encounter Plan of Treatment Not on file documented as of this encounter Goals Goal Patient Goal Type Associated Problems Recent Progress Patient-Stated? Author Blood Pressure < 130/80 Blood Pressure Essential hypertension 158/93(2024 4:42 PM EST) No Fahad Page, PharmD HEMOGLOBIN A1C < 7.0 Result Component Diabetes mellitus ([facility]) 13.8(01/29/20 24 12:08 PM EDT) No Fahad Page, PharmD documented as of this encounter Visit Diagnoses Diagnosis Partial thickness burn of foot, unspecified laterality, initial encounter- Primary documented in this encounter Additional Health Concerns Assessment Noted Time PHQ-9 Depression Total Score: 3 01/29/20 24 11:34 AM PDT documented as of this encounter Care Teams Finance Manager Relationship Specialty Start Date End Date Gui Plascencia PA [address] [place] [id number] PCP - General Internal Medicine 03/30/18 documented as of this encounter
== END 2024-09-23 14:42 | disposition home or self-care (01) ==
PROVIDERS: PCP Physician Assistant; Visit Provider Nurse Practitioner Family
DX: Z13.9 Encounter for screening, unspecified (principal); N43.3 Hydrocele, unspecified
CPT/HCPCS: 99203

== ENCOUNTER → 2024-09-23 13:45 | Outpatient (BNVA) | payer MEDICAID, SELFPAY | PROVIDERS: PCP Physician Assistant; Visit Provider Nurse Practitioner Family | DX: N43.3 Hydrocele, unspecified (principal); E11.9 Type 2 diabetes mellitus without complications | CPT/HCPCS: 81003; 99212 ==